=== PATIENT | female | born 1960 | race Caucasian/White ===

== ENCOUNTER 2018-02-01 03:53 | Emergency (ER) | payer MEDICARE, MEDICAID ==
[2018-02-01] MEDS ORDERED: LIDOCAINE 1% 2 ML VIAL SUBQ ONE (04:25)
[2018-02-01] MEDS ORDERED: BACITRACIN OINT TOP STA (04:25)
[2018-02-01] MEDS ORDERED: cefTRIAXone 1 GM VIAL IM STA (04:25)
[2018-02-01] MEDS ORDERED: KETOROLAC 60 MG/2 ML VIAL IM STA (04:44)
--- NOTE | 2018-02-01 04:47 | ED Physician Documentation ---
PD HPI UPPER EXT INJURY - Stated complaint Stated Complaint: WOUND LT HAND - Chief complaint Chief Complaint: Laceration - History of Present Illness Location: Left, Hand Type of injury: Laceration, Puncture wound Where injury occurred: Home Timing - onset: How many hours ago (8) Timing - details: Abrupt onset Worsened by: Moving, Palpating Similar symptoms before: Has not had sx before Recently seen: Not recently seen - Additonal information Additional information: Patient is a 57 year old female presenting to the emergency department for left hand laceration. patient states that she was cutting boxes and cut the webbing on her left hand. Patient washed it out and didn't think much of it, but states she started develop surrounding erythema and arm pain so she came to the emergency department for evaluation. patient states that she is up to date on her tetanus. Review of Systems Constitutional: denies: Fever, Chills Eyes: reports: Reviewed and negative Ears: reports: Reviewed and negative Nose: reports: Reviewed and negative Throat: reports: Reviewed and negative Cardiac: denies: Chest pain / pressure, Palpitations Respiratory: denies: Dyspnea, Cough, Wheezing GI: denies: Nausea, Vomiting : reports: Reviewed and negative Skin: reports: Lesions, Laceration (s) Musculoskeletal: reports: Extremity pain, Extremity swelling Neurologic: denies: Generalized weakness, Focal weakness, Numbness Psychiatric: reports: Anxiety Immunocompromised: denies: Immunocompromised PD PAST MEDICAL HISTORY - Past Medical History Cardiovascular: Hypertension Respiratory: None Neuro: Headache/migraine Endocrine/Autoimmune: None GI: GERD TRANSMISSION REPAIRER: None : None HEENT: None Psych: None Musculoskeletal: Osteoarthritis, Fibromyalgia Derm: None - Past Surgical History Past Surgical History: Yes - Present Medications Home Medications: Ambulatory Orders Medication Instructions Recorded Confirmed Alprazolam [Alprazolam ER] 1 mg PO DAILY 01/17/14 01/17/14 Amoxicillin 500 mg PO TID 01/17/14 01/17/14 Carisoprodol 350 mg PO TID 01/17/14 01/17/14 Chlorhexidine Gluconate 15 ml MM 01/17/14 01/17/14 Ibuprofen 400 mg PO 01/17/14 01/17/14 Omeprazole [PriLOSEC] 20 mg PO DAILY 01/17/14 01/17/14 Promethazine Supp [Phenergan] 25 mg NM Q6HR PRN #10 supp 01/17/14 cloNIDine HCl [Clonidine HCl] 0.1 mg PO BID 01/17/14 01/17/14 oxyCODONE [Roxicodone] 5 mg PO Q4-6H 01/17/14 01/17/14 Cephalexin [Keflex] 500 mg PO Q6H 14 Days capsule 02/01/18 - Allergies Allergies/Adverse Reactions: Allergies Allergy/AdvReac Type Severity Reaction Status Date / Time amlodipine Allergy Edema Verified 02/01/18 04:12 meperidine AdvReac Unknown Nausea Verified 07/13/16 03:54 - Social History Does the pt smoke?: No Smoking Status: Never smoker Does the pt drink ETOH?: No Does the pt have substance abuse?: No - Immunizations Immunizations are current?: Yes - POLST Patient has POLST: No PD ED PE NORMAL - Vitals Vital signs reviewed: Yes - General General: Alert and oriented X 3, No acute distress - HEENT HEENT: Atraumatic - Cardiac Cardiac: RRR - Respiratory Respiratory: No respiratory distress - Abdomen Abdomen: Non distended - Neuro Neuro: Alert and oriented X 3, No motor deficit PD ED PE EXPANDED - Extremities Extremities: Left hand (1cm laceration in webbing between 1st and 2nd digit of left hand, no bleeding, mild swelling and erythema of left hand), Motor intact, Sensory intact, Vascular intact - Psych Psych: Anxious Results - Vitals Vitals: Vital Signs - 24 hr 02/01/18 03:58 Temperature 36.6 C Heart Rate 83 Respiratory 17 Rate Blood Pressure 176/100 H O2 Saturation 100 Oxygen O2 Source Room air Procedures - Laceration (location) left hand Length in cm: 1 Wound type: Linear Neurovascular status: Sensory intact, Motor intact, Vascular intact Skin layer closure: Steri strips Other: Patient tolerated well, Dressing applied, Tetanus UTD Complexity: Simple PD MEDICAL DECISION MAKING - ED course Complexity details: reviewed old records, re-evaluated patient, considered differential, d/w patient ED course: Patient was seen and examined at bedside. Patient's wound had already been cleaned. Steri strips were placed over the wound. Patient had some swelling and distal redness so was treated with a IM rocephin and toradol. Patient was non toxic and well appearing. patient was stable for discharge with outpatient follow up. Departure - Departure Disposition: 01 Home, Self Care Clinical Impression: Laceration Condition: Good Instructions: ED Laceration Hand Follow-Up: Provider,Other [Primary Care Provider] - As Needed Prescriptions: Cephalexin [Keflex] 500 mg PO Q6H 14 Days capsule Comments: Your laceration was repaired with steri-strips. they should fall off in about a week or so. If one falls off before then you can replace the strip with the one given to you. You were treated with antibiotics here in the emergency department and will be sent home on them. You should keep the wound clean and dry. You should monitor for signs of infection and follow up with your doctor for any of those signs. You can take motrin or tylenol as needed for pain.
[2018-02-01 05:09] VITALS: BP 188/89
== END 2018-02-01 05:15 | disposition home or self-care (01) ==
LOC: ED 03:53
DX: S61.412A Laceration without foreign body of left hand, initial encounter (principal); W26.0XXA Contact with knife, initial encounter; I10 Essential (primary) hypertension
CPT/HCPCS: 96372; 99283; A9270

== ENCOUNTER 2018-10-26 14:30 | Outpatient (CLI) | payer MEDICARE, MEDICAID | END 2018-10-26 14:31 | disposition home or self-care (01) | LOC: LAB.F 14:30 | PROVIDERS: ATTEND Allergy & Immunology Allergy | DX: B37.82 Candidal enteritis (principal); E03.9 Hypothyroidism, unspecified; E72.10 Disorders of sulfur-bearing amino-acid metabolism, unspecified; E27.40 Unspecified adrenocortical insufficiency; R53.83 Other fatigue; M79.7 Fibromyalgia; T78.40XA Allergy, unspecified, initial encounter ==

== ENCOUNTER 2018-11-01 15:23 | Outpatient (CLI) | payer MEDICARE, MEDICAID ==
[2018-11-01 18:14] LABS: BASOPHILS % (AUTO) 0.6 %; EOSINOPHILS # (AUTO) 0.1 10^3/uL (0.0-0.7); HGB - HEMOGLOBIN 14.9 g/dL (12.0-16.0); LYMPHOCYTES # (AUTO) 1.2 10^3/uL (1.5-3.5); LYMPHOCYTES % (AUTO) 28.2 %; MEAN CORPUSCULAR HEMOGLOBIN 30.9 pg (27.0-31.0); MEAN CORPUSCULAR HGB CONC 33.8 g/dL (32.0-36.0); MEAN CORPUSCULAR VOLUME 91.6 fL (81.0-99.0); MEAN PLATELET VOLUME 8.3 fL (7.9-10.8); MONOCYTES # (AUTO) 0.5 10^3/uL (0.0-1.0); MONOCYTES % (AUTO) 12.4 %; NEUTROPHILS # (AUTO) 2.5 10^3/uL (1.5-6.6); NEUTROPHILS % (AUTO) 56.8 %; PLT - PLATELET COUNT 187 10^3/uL (130-450); RED BLOOD COUNT 4.81 10^6/uL (4.20-5.40); RED CELL DISTRIBUTION WIDTH 12.3 % (12.0-15.0); WHITE BLOOD COUNT 4.4 x10^3/uL (4.8-10.8)
[2018-11-01 18:23] LABS: ALBUMIN 4.3 g/dL (3.2-5.5); ALBUMIN/GLOBULIN RATIO 1.5 (1.0-2.2); ALKALINE PHOSPHATASE 59 IU/L (42-121); ALT ALANINE AMINOTRANSFERASE 21 IU/L (10-60); AST ASPARTATE AMINOTRANSFERASE 23 IU/L (10-42); BILIRUBIN,TOTAL 0.8 mg/dL (0.2-1.0); BUN - BLOOD UREA NITROGEN 17 mg/dL (6-20); CARBON DIOXIDE - CO2 26 mmol/L (21-32); CHLORIDE 102 mmol/L (101-111); CREATININE 0.5 mg/dL (0.4-1.0); GFR - MDRD 126 (>89); GLUCOSE 92 mg/dL (70-100); SODIUM 135 mmol/L (135-145); TOTAL PROTEIN 7.1 g/dL (6.7-8.2)
[2018-11-01 18:25] LABS: BILIRUBIN,URINE NEGATIVE (NEGATIVE); GLUCOSE, URINE (UA) NEGATIVE (NEGATIVE); KETONES,URINE (UA) NEGATIVE (NEGATIVE); LEUKOCYTE ESTERASE, URINE NEGATIVE (NEGATIVE); NITRITE,URINE NEGATIVE (NEGATIVE); OCCULT BLOOD,URINE NEGATIVE (NEGATIVE); PROTEIN,URINE NEGATIVE (NEGATIVE); UROBILINOGEN,URINE 0.2 (NORMAL) E.U./dL (NORMAL)
[2018-11-01 18:28] LABS: CLARITY,URINE CLEAR (CLEAR)
[2018-11-01 18:36] LABS: CORTISOL 3.2 ug/dL
[2018-11-01 18:37] LABS: T4 (THYROXINE) 8.31 ug/dL (6.09-12.23)
[2018-11-01 18:38] LABS: THYROID STIMULATING HORMONE 0.49 uIU/mL (0.34-5.60)
[2018-11-01 18:40] LABS: FREE T4 (FREE THYROXINE) 0.95 ng/dL (0.58-1.64)
[2018-11-01 18:44] LABS: FERRITIN 53.4 ng/mL (11.0-306.8)
[2018-11-01 18:45] LABS: TOTAL T3 0.98 ng/mL (0.87-1.78)
[2018-11-01 20:55] LABS: CRP - C-REACTIVE PROTEIN < 1.0 mg/dL (0-1.0); DIGOXIN < 0.2 ng/mL
[2018-11-03 11:42] LABS: THYROID PEROXIDASE ANTIBODIES 1 IU/mL (<9)
[2018-11-03 20:51] LABS: DHEA SULFATE 31 mcg/dL (8-188)
[2018-11-05 14:56] LABS: T3 REVERSE 20 ng/dL (8-25)
== END 2018-11-01 15:24 | disposition home or self-care (01) ==
LOC: LAB.F 15:23
PROVIDERS: ATTEND Allergy & Immunology Allergy
DX: B37.82 Candidal enteritis (principal); E03.9 Hypothyroidism, unspecified; E72.10 Disorders of sulfur-bearing amino-acid metabolism, unspecified; E27.40 Unspecified adrenocortical insufficiency; R53.83 Other fatigue; M79.7 Fibromyalgia; T78.40XA Allergy, unspecified, initial encounter; T59.91XA Toxic effect of unspecified gases, fumes and vapors, accidental (unintentional), initial encounter
CPT/HCPCS: 36415; 80053; 80162; 81003; 81599; 82306; 82533; 82627; 82728; 84436; 84439; 84443; 84480; 84481; 84482; 85025; 85651; 86140; 86376; 86800